=== PATIENT | female | born 1965 | race Caucasian/White ===

== ENCOUNTER 2016-10-24 14:26 | Inpatient (IN) | payer OTHER ==
[~2016-10-24] VITALS: Ht 165.1 cm; Wt 140.3 kg
[2016-10-24 14:36] VITALS: PULSE 101; RESP 18; O2SAT 95
[2016-10-24 14:59] LABS: BASOPHILS % (AUTO) 0.3 % (0-3); EOSINOPHILS % (AUTO) 1.3 % (0-5); MONOCYTES % (AUTO) 9.3 % (4-12); Mean Corpuscular Hemoglobin 30.6 pg (27.0-35.0); Mean Corpuscular Volume 87.6 fL (81-100); Platelet Count 173 bil/L (150-400)
--- NOTE | 2016-10-24 15:09 | DRSVH ---
PROCEDURE: X-RAY CHEST ONE VIEW, PORTABLE ([id number]) INDICATIONS: RESP TECHNIQUE: One view of the chest was acquired. COMPARISON: None. FINDINGS: Surgical changes and devices: None. Lungs and pleura: No pleural effusions or pneumothorax. Lungs are clear consider reduced inspirator y volume. Mediastinum: Mediastinal contours appear normal. Heart size is normal. Bones and chest wall: No suspicious bony lesions. Overlying soft tissues appear unremarkable. IMPRESSION: Large body habitus, reduced inspiratory volume, and when these factors are taken into acc ount no definite acute disease is seen. Dictated by: Deondre Medina M.D. on 10/24/2016 at 15:08 Approved by: Deondre Medina M.D. on 10/24/2016 at 15:08
[2016-10-24 15:18] LABS: TROPONIN T < 0.010 ug/L (0.0-0.011)
[2016-10-24 16:54] VITALS: BP 105/50; PULSE 93; RESP 15; O2SAT 95
[2016-10-24 17:35] LABS: APPEARANCE,URINE CLEAR (CLEAR,HAZY); COLOR,URINE YELLOW (YELLOW)
[2016-10-24 17:36] LABS: OCCULT BLOOD,URINE NEGATIVE (NEGATIVE); UROBILINOGEN,URINE NORMAL (NORMAL)
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
--- NOTE | 2016-10-24 18:07 | ABG ---
DateTimeAnalyzed 18:00:00 -_ pH ____7.370 - 7.350 7.450 pCO2 ___39.7__ -mmHg 35.0 45.0 pO2 ___80.2__ -mmHg 69.0 116 HCO3- ___22.4__ -mmol/L 22.0 26.0 ABE ___-2.1__ -mmol/L -2.0 2.0 tHb ___13.9__ -g/dL O2Hb ___93.0__ -% COHb ____0.9__ -% MetHb ____1.2__ -% sO2 ___95.0__ -% FIO2 ___24.0__ -% Drawn By jj - Date/Time Notified____ 18:06:00 -_ Liter_Flow ____1.0__ -L/min Oxygen Device 1 __CANNULA - Notified By jj - Notified Whom ___Dr. Blackduck - B 756 -mmHg tO2 ___18.2__ -Vol% Donald test _Positive -
[2016-10-24 19:11] VITALS: BP 104/49; PULSE 103; RESP 19; O2SAT 94; O2SAT 96
[2016-10-24 19:45] VITALS: BP 88/45
[2016-10-24] MEDS ORDERED: 0.9% Sodium Chloride 1,000 ML IV ONE (20:15)
--- NOTE | 2016-10-24 21:22 | DRSVH ---
PROCEDURE: CT ANGIO CHEST PULMONARY EMBOLISM ([id number]) INDICATIONS: dyspnea, tachycardia, hypotension TECHNIQUE: After the administration of intravenous contrast, 2 mm thick sections acquired from the pulmonary api lilliam to the posterior costophrenic angles. 3-dimensional maximum intensity projection (MIP) coronal a nd sagittal reformats were then acquired through the thorax. For radiation dose reduction, the follo wing was used: automated exposure control, adjustment of mA and/or kV according to patient size. COMPARISON: None. FINDINGS: Image quality: Excellent. Pulmonary arteries: Pulmonary arteries are normal in size, and demonstrate no intraluminal filling d efects to suggest central pulmonary embolism. Lungs and pleura: Lungs are mildly abnormal with what appears to be a mild pulmonary edema pattern b ut the patient body habitus is very large and the inspiratory volume is reduced. The appearance may simply represent sequela of these 2 factors rather than true pulmonary edema. No pleural effusions o r pneumothorax. Central and peripheral airways are patent. Mediastinum: Heart size is normal, without pericardial effusion. No mediastinal or hilar adenopathy . Thoracic aorta is normal in caliber and enhancement. Esophagus is normal in caliber, without hiat al hernia. Bones and chest wall: No suspicious bony lesions. Ribs and thoracic spine appear intact throughout. Thyroid gland appears normal where well visualized. No axillary or supraclavicular adenopathy. Abdomen: Visualized upper abdominal solid organs appear normal in the early arterial phase of enhanc ement. IMPRESSION: Please correlate for whether pulmonary edema may be present. As discussed above the ins piratory volume is prominently reduced in the patient body habitus is large which can result in a fal se positive appearance of pulmonary edema (mild in severity in this circumstance). No pulmonary embo vangie seen. Dictated by: Deondre Medina M.D. on 10/24/2016 at 21:19 Approved by: Deondre Medina M.D. on 10/24/2016 at 21:21
[2016-10-24 21:28] VITALS: BP 105/51; PULSE 85; RESP 16; O2SAT 96
[2016-10-24 22:15] VITALS: BP 100/45; PULSE 86; RESP 17; O2SAT 95
[2016-10-25] VITALS (9 sets, daily range): BP systolic 93–116; BP diastolic 57–77; PULSE 79–94; RESP 16–20; O2SAT 90–97
--- NOTE | 2016-10-25 02:14 | NUR ---
ADMIT Pt arrived on unit via stretcher from ED with all personal belongings. Able to transfer self to bed. VSS. Alert and oriented. Denies pain or discomfort. Denies cardiac pain, SOB or n/v. Continuous pulse ox on HS, sats 97% on RA. Allergy sticker placed on armband. Oriented to room, hospital and fall policy. SBA and nonslip socks for safety. Unable to complete home medication list as pt poor historian. Sent fax to [facility] requesting medication list. Call light within reach, using appropriately. Frequent rounding in place. Pleasant and cooperative with care.
[2016-10-25] MEDS ORDERED: Alum-Mag Hydrox-Simeth 30 mL Suspension PO PRN (02:40)
[2016-10-25] MEDS: Heparin 5,000 Unit/mL Inj SUBQ SCH ×3 (02:40→17:14)
[2016-10-25] MEDS ORDERED: Polyethylene Glycol (PEG) 17 Gm Powder PO PRN (02:40)
[2016-10-25] MEDS ORDERED: Ondansetron 2 mg/mL 2 mL Inj IVPUSH PRN (02:40)
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
[2016-10-25] MEDS: 0.9% Sodium Chloride 1,000 ML IV SCH ×2 (05:11→22:00)
[2016-10-25 05:55] LABS: BASOPHILS % (AUTO) 0.3 % (0-3); EOSINOPHILS % (AUTO) 1.5 % (0-5); MONOCYTES % (AUTO) 8.2 % (4-12); Mean Corpuscular Hemoglobin 30.5 pg (27.0-35.0); Mean Corpuscular Volume 88.6 fL (81-100); NEUTROPHILS % (AUTO) 62.3 % (40-74); Platelet Count 152 bil/L (150-400)
[2016-10-25] MEDS ORDERED: ACET-171 PO (08:46)
[2016-10-25] MEDS ORDERED: OXYB5TAB10 PO (08:46)
[2016-10-25] MEDS ORDERED: LISI1TAB11 PO (08:46)
[2016-10-25] MEDS ORDERED: ACYC400T2 PO (08:46)
[2016-10-25] MEDS ORDERED: NPR500T PO (08:46)
[2016-10-25] MEDS ORDERED: OMEP40CA36 PO (08:46)
--- NOTE | 2016-10-25 09:09 | NUR ---
Social Work-initial assessment: Data:See initial assessment. Pt is a 51 y/o female who was admitted on 10/24/16 for dyspnea per H&P. Pt's insurance is [facility] and PCP is Molly Fox at [facility]. EMR reviewed. SW met with pt at bedside, SW role explained. Pt is alert and oriented x3. Pt resides at home with her two sons in [place] where she remains independent with ADLs. Pt drives and does not use any DME at baseline. Pt is not on Home O2, but is currently using O2 in the hospital. Pt has no HH or SNF history. Pt has no [facility] care insurance or [facility] benefits. SW discussed DPOA/ advanced directive, pt confirms she has not completed this, information has been provided to pt. Pt discussed with RN and MD, no concerns regarding pt's capacity for self care, as demonstrated by her ability to be independent in the room and is able to follow instructions. SW provided pt with discharge planning checklist booklet and encouraged her to call with any questions, phone number provided on white board in room. Pt's family to provide transport home. No anticipated discharge needs. SW will continue to follow if needs arise. Assessment:Pt who is independent at baseline. Plan:Pt to discharge home when medically stable via POV. No anticipated discharge needs. SW will continue to follow if needs arise. AUSTIN Michaels Addendum: 10/25/16 at 0915 by RAJEEV BARRIENTOS Amended: Links added.
--- NOTE | 2016-10-25 11:48 | NUR ---
Evaluation completed. Please go to "Notes" then click on "Assessments and Notes" (bottom left corner of screen). Then select appropriate discipline tab on top of screen.
--- NOTE | 2016-10-25 13:40 | NUR ---
NPO Addendum: 10/25/16 at 1340 by WOOD SOLOMON RN Amended: Mendoza added.
--- NOTE | 2016-10-25 13:52 | NUR ---
Pulmonology Per provider nursing communication orders," get records from pulmonology in [place]." UA received fax from pulmonology and given to Dr. Gaines.
[2016-10-25] MEDS: Acyclovir 400 mg Tablet PO SCH (14:57)
--- NOTE | 2016-10-25 15:05 | NUR ---
Stress test Patient left unit for stress test via wheel chair.
--- NOTE | 2016-10-25 17:08 | NUR ---
Stress test patient back from stress test 1708.
--- NOTE | 2016-10-25 18:56 | DRSVH ---
PROCEDURE: 1 DAY TREADMILL STRESS TEST INDICATIONS: DYSPNEA. COMPARISON: None. Radiopharmaceutical: Rest dose 15.5 mCi of technetium 99 tetrofosmin Stress dose 43.4 mCi of technetium 99 tetrofosmin Patient presentation: Patient is a 51-year-old woman with hypertension, family history of coronary ar adalid disease and shortness of breath. FINDINGS: Pharmacologic stress test: Following informed consent patient walked on Gabo protocol for 2 minutes and 43 seconds. Study was terminated due to severe shortness of breath. Study was characterized by a severely reduced exercise capacity. Functional impairment index is 60%. Rest EKG demonstrated sinus t achycardia with heart rate 96 beats per minute. At peak stress patient had no significant ST segment changes and no ectopy. Raw data: Normal myocardial tracer uptake. Lung heart ratio is grossly normal Myocardial perfusion imaging: There is no evidence of ischemia or prior infarct. Quantitative gated SPECT: At peak stress ejection fraction is 89%. Rest ejection fraction 73%. No foc al wall motion abnormality seen. IMPRESSION: Low risk graded exercise stress test with myocardial perfusion imaging. No evidence of ischemia or prior infarct. Normal wall motion and left ventricular systolic function. Severely reduced exercise capacity No prior study available for comparison. Dictated by: Marcella Hoffman M.D. on 10/25/2016 at 18:51 Approved by: Marcella Hoffman M.D. on 10/25/2016 at 18:55
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
[2016-10-26] VITALS (9 sets, daily range): BP systolic 100–107; BP diastolic 64–71; PULSE 67–105; RESP 16–20; O2SAT 92–98
[2016-10-26] MEDS: 0.9% Sodium Chloride 1,000 ML IV SCH ×2 (00:45→12:49)
[2016-10-26] MEDS: Heparin 5,000 Unit/mL Inj SUBQ SCH ×3 (01:54→16:04)
--- NOTE | 2016-10-26 05:09 | NUR ---
Nurse Note NOC shift Pt is alert and oriented x4, c/o mild pain on her knees which is relieved by scheduled Naproxen. BP remains stable through the shift. She continues to c/o SOB with activities and is unable to lay flat. SPO2 high 90's when awake but at night SPO2 would drop to low 70's and one time to 57% non-sustained. SPO2 drops for just few seconds. Pt was observed to have spells of apnea through the night when asleep, incoming shift notified to follow up with MD.
[2016-10-26] MEDS: Pantoprazole 40 mg ER24 Tablet PO SCH (09:02)
[2016-10-26] MEDS: Acyclovir 400 mg Tablet PO SCH (09:03)
--- NOTE | 2016-10-26 10:18 | NUR ---
Social Work-readiness for discharge: Data:EMR reviewed. Pt is on day 2 of hospitalization for dyspnea per H&P. Pt is not medically stable anticipate tomorrow. Pt resides at home with family and has been up independent. PT has cleared pt for home no needs. No anticipated discharge needs. SW will continue to follow if needs arise. Assessment:Pt who is independent at baseline. Plan:Pt to discharge home when medically stable via POV. No anticipated discharge needs. SW will continue to follow if needs arise. AUSTIN Michaels
[2016-10-26] MEDS ORDERED: Albuterol 2.5 mg/3 mL Inhalation Solution NEB PRN ×2 (15:05)
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
--- NOTE | 2016-10-26 19:52 | NUR ---
Resp MD requested to keep pt on RA for O2 trial. Continuous pulse ox demonstrated pt able to maintain O2 sats between 91-95% while on RA and engaging with RN. Pt c/o slight SOB at rest. Becomes dyspnic with activity or with talking.
[2016-10-26] MEDS ORDERED: Albuterol 2.5 mg/3 mL Inhalation Solution NEB SCH (22:00)
[2016-10-27] MEDS: Heparin 5,000 Unit/mL Inj SUBQ SCH ×2 (00:01→08:37)
[2016-10-27 05:50] VITALS: BP 99/65; PULSE 78; RESP 20; O2SAT 95
[2016-10-27 06:06] VITALS: PULSE 98
--- NOTE | 2016-10-27 06:44 | NUR ---
Oxygen sat Pt's oxygen sat decreased while pt sleeping, pt was placed on 2L oxymask, oxygen sat increased to mid 90's. Continuous pulse ox in place.
[2016-10-27] MEDS: Acyclovir 400 mg Tablet PO SCH (08:36)
[2016-10-27] MEDS: Pantoprazole 40 mg ER24 Tablet PO SCH (08:37)
[2016-10-27 09:36] VITALS: BP 111/68; PULSE 82; RESP 20; O2SAT 94
[2016-10-27] MEDS ORDERED: ALBU2.5V4 NEB (09:45)
--- NOTE | 2016-10-27 10:29 | PCM.DIMED ---
Discharge Instructions Date of Service Oct 27, 2016 Dates of Hospitalization Oct 24, 2016 at 23:21 Medication Instructions Additional med instructions You Hypertension meds are discontinued, as you did not need this during this admission. Activity Discharge Activity: No restrictions Call your provider Call your provider for: Fever or Chills, Shortness of breath, Bleeding, Chest pain, Vomitting, Excessive diarrhea, Weakness (unilateral), Other Patient Instructions Follow-up plan Please follow up w/ your distribution collection operator at [facility] in 5 days. Please share the followign recommendations with them. - Trial on albuterol nebulizer 3-4 times daily for 6 weeks. - Obtain PFTs directly before initiating therapy and follow up PFTs after completing 6 weeks of therapy. - Consider a prolonged course of prednisone if trial of bronchodilator therapy does not - Recommend outpatient cardiopulmonary stress test - Recommend outpatient sleep study - Recommend pulmonary rehabilitation F/U with PCP in 2 weeks Cathleen Roe DO Oct 27, 2016 10:29
[2016-10-27 10:40] VITALS: PULSE 86
--- NOTE | 2016-10-27 10:49 | NUR ---
Social Work-discharge: Data:EMR reviewed. Pt is on day 3 of hospitalization for dyspnea per H&P. Pt is medically stable for discharge. Pt resides at home with her family. Pt has been cleared by PT to return home no needs. No discharge needs identified. All updated and agreeable to plan. Assessment:Pt who is independent at baseline. Plan:Pt to discharge home today via POV. No discharge needs identified. All updated and agreeable to plan. AUSTIN Michaels
[2016-10-27 11:09] VITALS: O2SAT 92
--- NOTE | 2016-10-27 11:10 | NUR ---
walking O2 Sat Order from MD to obtain walking O2 sat. Pt started at 95% on RA while resting. Sats down to 92% with walking. Subjectively, pt states she if very SOB. Only able to say 2-3 words before needing to take a breath and had to take a break senior living through lap. Per tele, pt HR elevated to 130's while walking. notified of results
[2016-10-27 11:33] VITALS: PULSE 90; RESP 22; O2SAT 97
--- NOTE | 2016-10-27 12:54 | NUR ---
discharge O2 sats monitored while resting and walking. Pt to have home O2 delivered this afternoon on arrival to home from a previous MD order. 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 Pt also to call PCP to get referral to make cardiology apt as required by her health insurance. Pt also to speak with PCP re: sleep study as she required O2 last night to maintain sats. Pt took all belongings with her. PIV and tele removed prior to d/c.
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
== END 2016-10-27 12:53 | disposition home or self-care (01) | DRG 682 ==
LOC: EDBD 14:26 → SED 14:26 → OBSVTOIN 23:21 → INTOOBSV 23:21 → OSC 23:21 → MPC 10-25 00:21
PROVIDERS: ADMIT Internal Medicine; ATTEND Internal Medicine
PROC: 4A033R1 Measurement of Arterial Saturation, Peripheral, Percutaneous Approach (ICD-10-PCS; principal; 2016-10-24)
DX: N17.9 Acute kidney failure, unspecified (principal); J96.21 Acute and chronic respiratory failure with hypoxia; Z68.43 Body mass index [BMI] 50.0-59.9, adult; E66.01 Morbid (severe) obesity due to excess calories; I95.9 Hypotension, unspecified; E87.8 Other disorders of electrolyte and fluid balance, not elsewhere classified; I10 Essential (primary) hypertension